=== PATIENT | male | born 1955 | race Caucasian/White ===

== ENCOUNTER 2018-08-27 09:17 | Day surgery (SDC) | payer OTHER ==
[2018-08-22 16:18] VITALS: BMI 42.3
[2018-08-27] MEDS ORDERED: PROPOFOL 40 ML ONE (11:38)
[2018-08-27] MEDS ORDERED: Hydrocortisone 1% Cream 30 GM TUBE ONE (12:53)
[2018-08-27] MEDS ORDERED: PROPOFOL 200 MG/20 ML VIAL ONE (16:37)
--- NOTE | 2018-08-28 21:53 | ECHO ---
Date of Service: 08/27/18 PREPROCEDURE: Atrial fibrillation. Transesophageal echo was done for evaluation for thrombus. The Anesthesiology department provided with sedation for the patient. Please see their notes for det ails. After adequate sedation was achieved, transesophageal probe was inserted into the mouth and into the esophagus. Multiplanar views were obtained. Left ventricle is normal size, normal wall thickness. Systolic function appears to be normal at 50-5 5%. Left atrium is dilated. Left atrial appendage is a large appendage with spontaneous echo contrast. No evidence of mass or thr ombus. Reduced velocities. Right atrium is mildly dilated. No mass or thrombus. Intra-atrial septum, there is a small patent foramen ovale with bidirectional flow. The right ventricle is normal size with normal systolic function. Aortic valve is structurally normal. Three cusps. No stenosis or regurgitation. Mitral valve is structurally normal. There is mild MR. No stenosis. Tricuspid valve is structurally normal. There is mild TR, no stenosis. Pulmonary valve is structurally normal. Mild PI. No stenosis. CONCLUSIONS: 1. Normal systolic function, EF at 50-55%. 2. Biatrial enlargement. 3. Small patent foramen ovale with bidirectional flow. 4. Large left atrial appendage with reduced velocities. Spontaneous echo contrast but no mass or thr ombus. 5. Mild TR. 6. Mild MR. 7. Mild PI.
--- NOTE | 2018-08-28 23:51 | OP ---
DATE OF SERVICE: 08/27/18 PREPROCEDURE DIAGNOSIS: Atrial fibrillation with rapid ventricular rate. SUMMARY: The patient is a pleasant 64-year-old white gentleman who comes to the outpatient area for a planned [facility] cardioversion. See [facility] report for details. After adequate sedation was achieved by the anesthesiology department, first initial synchronized apollo ck was delivered at 150 joules which was unsuccessful. A second shock at 200 joules synchronized was delivered successfully converting him into sinus rhythm. Patient tolerated the procedure well. RECOMMENDATIONS: 1. Continued anticoagulation and Flecainide for now. 2. Followup in four weeks.
--- NOTE | 2018-08-31 20:17 | EKG ---
Test Reason : POST [facility]/CARDIOVERSI Blood Pressure : / mmHG Vent. Rate : 072 BPM Atrial Rate : 072 BPM P-R Int : 228 ms QRS Dur : 110 ms QT Int : 402 ms P-R-T Axes : 037 063 025 degrees QTc Int : 440 ms Sinus rhythm with 1st degree A-V block Otherwise normal ECG No previous ECGs available Confirmed by Franklin HONG ([id number]) on 08/31/2018 8:17:30 PM Referred By: RJ Confirmed By:Franklin HONG
== END 2018-08-27 13:06 | disposition home or self-care (01) ==
LOC: CCL 09:17
PROVIDERS: ATTEND Internal Medicine Cardiovascular Disease
PROC: 5A2204Z Restoration of Cardiac Rhythm, Single (ICD-10-PCS; principal; 2018-08-27)
PROC: B246ZZ4 Ultrasonography of Right and Left Heart, Transesophageal (ICD-10-PCS; principal; 2018-08-27)
DX: I48.91 Unspecified atrial fibrillation (principal); I34.0 Nonrheumatic mitral (valve) insufficiency; I36.1 Nonrheumatic tricuspid (valve) insufficiency; I10 Essential (primary) hypertension; E11.9 Type 2 diabetes mellitus without complications; Z90.89 Acquired absence of other organs; Z79.4 Long term (current) use of insulin; Z79.01 Long term (current) use of anticoagulants; Z79.82 Long term (current) use of aspirin; Z79.899 Other long term (current) drug therapy; Z98.890 Other specified postprocedural states
CPT/HCPCS: 92960; 93005; 93010; 93312; J2704

== ENCOUNTER 2022-06-24 19:33 | Emergency (ER) | payer BC ==
[2022-06-24 20:15] LABS: #Basophils 0.1 thou/uL (0.0-0.2); #Eosinphils 0.1 thou/uL (0.0-0.7); #Lymphocytes 2.4 thou/uL (1.20-3.40); #Monocytes 0.9 thou/uL (0.11-0.59); #Neutrophils 8.7 thou/uL (1.40-6.50); %Basophils 0.6 % (0.0-1.0); %Eosinophils 0.6 % (0.0-10.0); %Lymphocytes 19.7 % (21.0-51.0); %Monocytes 7.1 % (0.0-10.0); Hemoglobin 15.2 g/dL (14.0-18.0); Mean Corpuscular HGB CONC 31.2 g/dL (32.0-36.0); Mean Corpuscular Hemoglobin 25.4 pg (27.0-31.0); Mean Corpuscular Volume 81.3 fl (78.0-98.0); Mean Platelet Volume 8.7 fL (7.4-10.4); Platelet Count 249 10x3/uL (130-400); RBC Distribution Width 14.5 % (11.5-14.5); Red Blood Cell (RBC) Count 5.98 mill/uL (4.70-6.10); White Blood Cell (WBC) Count 12.1 10x3/uL (4.8-10.8)
[2022-06-24] MEDS ORDERED: Morphine 4 MG/ML VIAL ONE (20:18)
[2022-06-24] MEDS ORDERED: Ondansetron PF 4 MG/2 ML Vial ONE (20:18)
[2022-06-24 20:31] LABS: ALT (SGPT) 18 U/L (8-55); AST (SGOT) 14 U/L (5-34); Alkaline Phosphatase 45 U/L (40-110); Anion Gap 12 mmol/L (10-20); BUN (Urea Nitrogen) 15 mg/dL (8.4-25.7); Calc. Creatinine Clearance 0 mL/min (70-130); Carbon Dioxide 24 mmol/L (23-31); Chloride 100 mmol/L (98-107); Estimated GFR 86; Globulin 3.1 g/dL (2.4-3.5); Glucose 155 mg/dL (80-115); Potassium 4.1 mmol/L (3.5-5.1); Protein, Total 7.1 g/dL (5.8-8.1); Sodium 132 mmol/L (136-145)
[2022-06-24 21:04] LABS: Bilirubin Negative (Negative); Glucose, Urine (Dipstick) >=1000 mg/dL (Negative); Ketone, Urine 15 mg/dL (Negative); Leukocyte Negative (Negative); Nitrite Negative (Negative); Protein, Urine (Dipstick) 100 mg/dL (Neg-Trace); Urobilinogen 0.2 mg/dL (Less than 2)
[2022-06-24 21:07] LABS: Clarity Cloudy (Clear)
[2022-06-24 21:08] LABS: Blood, Urine Large (Negative); Specific Gravity, Urine 1.033 (1.002-1.036)
[2022-06-24 21:10] LABS: Bacteria/HPF None Seen HPF (None Seen); RBC/HPF Greater than 50 HPF (0-3); Squamous Epithelial None Seen HPF (0-3); WBC/HPF 0-3 HPF (0-3)
== END 2022-06-24 21:53 | disposition home or self-care (01) ==
LOC: ERS 19:33
DX: R33.9 Retention of urine, unspecified (principal); R31.0 Gross hematuria; E11.9 Type 2 diabetes mellitus without complications
CPT/HCPCS: 36415; 80053; 81003; 81015; 85025; 87086; J2270; J2405

== ENCOUNTER 2022-06-26 20:48 | Emergency (ER) | payer BC | END 2022-06-26 22:42 | disposition home or self-care (01) | LOC: ERS 20:48 | DX: T83.098A Other mechanical complication of other urinary catheter, initial encounter (principal); E11.9 Type 2 diabetes mellitus without complications | CPT/HCPCS: 99283 ==

== ENCOUNTER 2025-06-03 07:56 | Outpatient (CLI) | payer MEDICARE, OTHER | END 2025-06-03 07:57 | disposition home or self-care (01) | LOC: LABBT 07:56 | PROVIDERS: ATTEND Internal Medicine Cardiovascular Disease | DX: Z01.810 Encounter for preprocedural cardiovascular examination (principal); I48.19 Other persistent atrial fibrillation | CPT/HCPCS: 80053; 83010; 83051; 83874; 85025; 85610; 85730; 86850; 86900; 86901; 93005; 93010 ==